=== PATIENT | male | born 1970 | race Two or more races ===

== ENCOUNTER 2022-12-26 05:56 | Day surgery (SDC) | payer OTHER ==
[~2022-12-26] VITALS: Ht 179.1 cm; Wt 95.3 kg
[~2022-12-26 05:56] MED LIST: CARDURA XL8 MG PO; FINASTERIDE5 MG PO; IRBESARTAN300 MG PO; NIFEDIPINE ER60 M1 PO
[2022-12-26] MEDS ORDERED: POLY119PG PO (11:59)
[2022-12-26] MEDS ORDERED: NEURONTIN300 MG PO (11:59)
[2022-12-26] MEDS ORDERED: TRAM1TAB98 PO (11:59)
== END 2022-12-26 17:00 | disposition home or self-care (01) ==
LOC: CIR.AMB 05:56
PROVIDERS: ATTEND Surgery
DX: K40.90 Unilateral inguinal hernia, without obstruction or gangrene, not specified as recurrent (principal); Z20.822 Contact with and (suspected) exposure to COVID-19; I10 Essential (primary) hypertension; Z87.891 Personal history of nicotine dependence
CPT/HCPCS: 49650; C1781